=== PATIENT | male | born 1955 | race Caucasian/White ===

== ENCOUNTER 2018-10-22 11:28 | Inpatient (IN) | payer SELFPAY ==
[~2018-10-22] VITALS: Ht 182.9 cm; Wt 113.6 kg
--- NOTE | ~2018-10-22 | DS ---
[facility] [address], [place] [address] Draft ADMISSION DATE: 10/22/2018 DISCHARGE DATE: 10/26/2018 REASON FOR ADMISSION: This 62-year-old white man is accompanied by his . 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 They call home the [facility]. The patient has had several weeks of urinary frequency, urinating at least 20 times a day on occasion and having some diarrhea and other issues related to bowel dysfunction. He presented to the emergency room with severe left lower abdominal and left suprapubic pain and was thoroughly evaluated by Dr. Lewis who noted tenderness in the left lower quadrant and suprapubic area. His lab studies were unremarkable with a normal white count and hematocrit. A CT scan was performed, showing marked inflammatory process related to the sigmoid and rectosigmoid with circumferential thickening, suggestive and worrisome for neoplasm, but with a high probability of acute diverticulitis without associated abscess as well. There is a marked inflammatory interface between the sigmoid colon and the bladder, but no sign of air within the bladder itself. He is admitted for further evaluation and care. PERTINENT PHYSICAL EXAMINATION: GENERAL: A large, tall, and obese white man. He did not look systemically toxic. NECK: Trachea is midline. CHEST: Clear. HEART: Regular without murmur. ABDOMEN: Obese, but generally soft. There is marked tenderness in the suprapubic area and the left lower abdomen. There is no sign of ascites. LABORATORY DATA: Lab studies showed a white count of 9.3, hematocrit 44.5, platelets 221,000. Electrolytes were normal. Creatinine elevated at 1.14. Liver enzymes normal. Urinalysis normal. HOSPITAL COURSE: The patient was admitted and given broad-spectrum antibiotic, meropenem. Concern was maintained this may well represent acute diverticulitis with impending colovesical fistula given the irritative symptoms of the bladder, but he affirmed no pneumaturia and his urinalysis was normal. He was given antibiotics to allow for improvement of his symptoms, which was effective. Mindful of the concern for a possible neoplasm associated with this process, he did undergo limited colonoscopy after a prep of tap water enemas only on October 25, 2018. Found at that time were no diverticula specifically, but the inflammatory area of concern showed edema and did not show signs PATIENT NAME: SANJUANITA MACHUCA DISCHARGE SUMMARY DATE OF : 57 REPORT #: [id number] PHYSICIAN: SPENCER CASTLE MD PCP: NO PRIMARY CARE PHYSICIAN REPORT IS CONFIDENTIAL AND NOT TO BE RELEASED WITHOUT AUTHORIZATION [facility] [address], [place] [address] Draft typical of colon cancer proper. Multiple biopsies were obtained. I reviewed the CT scan in detail with the radiologist, Dr. Hutton, and he did affirm clearly that there were diverticula in the region including upstream from the area evaluated. Notably, the colonoscope could not pass the area entirely, although it was not entirely obstructed. There was edema and discomfort, which precluded persisting so as to avoid perforation or other complication. He was advanced to a low-fiber diet, which he tolerated well and transitioned to oral antibiotics, Cipro and Flagyl, which he also tolerated. He is discharged to home with the proviso that he will see me back when he passes through town again and will coordinate with my office when that might be. He understands that the biopsies for the colonoscopy still are uncertain as regard to cancer, not although less likely so. He understands that there are implications for the diagnosis. If cancer is found, sigmoid resection would be necessary. If this is benign, treatment for inflammatory changes including the diverticulitis without need for surgery likely would be appropriate. At discharge, the patient will maintain a low-fiber diet with the dietary instruction to follow. He will not drive if taking an opioid pain medication, and if problems, will call me or direct himself to a nearest emergency room wherever he may find himself. It is recalled that he is discharged under the care and supervision of his who is a co-straddle bug driver with his [place]. DISCHARGE MEDICATIONS: 1. Cipro 500 mg one tab p.o. b.i.d., #14. 2. Flagyl 250 mg p.o. t.i.d., #21. 3. Nicotine lozenge 4 mg as needed for craving of cigarettes, #30, refill two. 4. Percocet 7.5/325 one p.o. q.6 p.r.n. pain, #20. 5. Tylenol Extra Strength 1000 mg p.o. q.6 hours as needed for lesser pain, #60, refill two. 6. He will continue with his usual medication including omeprazole 20 mg p.o. daily, aspirin 81 mg p.o. daily, and loratadine (Claritin) 10 mg p.o. as needed. DISCHARGE DIAGNOSES: 1. Severe acute diverticulitis with secondary effects on bladder and circumferential thickening of colon, sigmoid. 2. Obesity. 3. Reflux symptoms. 4. Smoking addiction. 5. History of abdominal wall hernia repair. 6. Status post limited colonoscopy with biopsy of circumferential edematous area, most consistent with inflammation, not neoplasm. PATIENT NAME: SANJUANITA MACHUCA DISCHARGE SUMMARY DATE OF : 57 REPORT #: [id number] PHYSICIAN: SPENCER CASTLE MD PCP: NO PRIMARY CARE PHYSICIAN REPORT IS CONFIDENTIAL AND NOT TO BE RELEASED WITHOUT AUTHORIZATION [facility] [address] [place] [id number] Draft FOLLOWUP PLANS: As noted, he will call to arrange a time to see us in my office as he passes through town again, which he does frequently. He understands that the pathology report must be conveyed to him directly and not to assume that since he has not heard anything that the biopsy is negative. He will be more difficult to contact on the road and we will be in our stationary office and he will call in a week if he does not hear from us sooner. Spencer Castle MD JM/MODL /[id number] cc: Lmaonte Lewis MD Copies: LAMONTE LEWIS MD ~ PATIENT NAME: SANJUANITA MACHUCA DISCHARGE SUMMARY DATE OF : 57 REPORT #: [id number] PHYSICIAN: SPENCER CASTLE MD PCP: NO PRIMARY CARE PHYSICIAN REPORT IS CONFIDENTIAL AND NOT TO BE RELEASED WITHOUT AUTHORIZATION
[2018-10-22] MEDS ORDERED: OMEPRAZOLE20 MG PO (11:48)
--- NOTE | 2018-10-22 19:51 | NUR ---
PT ADMITTED FROM THE ED FOR DR CASTLE. ON RA, A/O, [facility], THEN AMBULATED TO , PASSED LARGE AMOUNT GAS, NO BM, NO URINE. STATES HE WHEN HE GOT TO ED HE DIARRHEA, HAD MULT LOOSE STOOLS 10/24/18. 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 AT BEDSIDE. PT IS A EVERY DAY SMOKER.
--- NOTE | 2018-10-22 20:32 | NUR ---
PATIENT ADMISSION COMPLETED BY MARIANO LORENZO RN. PATIENT ASSESMENT COMLETED. IV INIFUSING PER ORDER. PATIENTS BOLUS INFUSING PER ORDER. PATIENTS EVENING MEDICATIONS GIVEN PER ORDER. PATIENT DENIES ANY PAIN OR NAUSEA. PATIENT REFUSED HEPARIN STATING "MY BROTHER IS ALLERGIC." PATIENT EDUCATED ON HEPARIN AND THE BENEFITS. PATIENT CONTINUES TO REFUSE. PATIENT DENIES ANY NEEDS. CALL LIGHT IN REACH. BROTH PROVIDED BY ISAAC DAY.
--- NOTE | 2018-10-22 22:46 | NUR ---
PATIENTS ABX INFUSING PER ORDER. PATIENT IS UP AMBULATING IN THE HALLWAY. PATIENT DENIES ANY PAIN OR NAUSEA. PATIENT HAD NO NAUSEA WITH BROTH. NO NEEDS NOTED.
--- NOTE | 2018-10-22 23:16 | NUR ---
PATIENT IS BACK IN BED RESTING AFTER AMBULATING MULTIPLE LAPS IN THE HALLWAY. PATIENTS IV INFUSING PER ORDER. PATIENT DENIES ANY PAIN OR NAUSEA. NO NEEDS NOTED. CALL LIGHT IN REACH.
--- NOTE | 2018-10-23 00:50 | NUR ---
PATIENT IS RESTING IN BED WATCHING TV. PATIENT DENIES ANY PAIN OR NAUSEA. NO NEEDS NOTED. CALL LIGHT IN REACH.
--- NOTE | 2018-10-23 02:11 | NUR ---
PATIENT IS RESTING IN BED WATCHING TV. PATIENT DENIES ANY PAIN OR NAUSEA. PATIENTS VITALS TAKEN AND RECORDED. INTAKE AND OUPUT TAKEN AND RECORDED. PATIENT PROVIDED WITH JUICE, BROTH AND FRESH ICE WATER PER REQUEST. PATIENT DENIES ANY FURTHER NEEDS. CALL LIGHT IN REACH.
--- NOTE | 2018-10-23 05:47 | NUR ---
PATIENT RESTED ON AND OFF SINCE ARRIVING TO THE FLOOR. PATIENT IS ON A CLEAR LIQUID DIET, TOLERATING IT WELL, AND NO COMPLAINTS OF NAUSEA. PATIENT IS ON RA. PATIENT HAS IV INFUSING PER ORDER. PATIENT HAS DENIED PAIN. PATIENT HAS SCDS ON WHILE IN BED. PATIENT IS INDEPENDENT AND AMBULATED MULTIPLE LAPS IN THE HALLWAY. PATIENT IS AAOX3.
--- NOTE | 2018-10-23 06:02 | NUR ---
PATIENTS VITALS TAKEN AND RECORDED. PATIENTS INTAKE AND OUPUT RECORDED. PATIENT IS RESTING IN BED WATCHING TV. PATIENT DENIES ANY PAIN OR NAUSEA. PATIENT PROVIDED WITH BROTH AND JUICE PER REQUEST. PATIENT DENIES ANY FURTHER NEEDS. CALL LIGHT IN REACH.
--- NOTE | 2018-10-23 06:40 | NUR ---
PATIENTS MORNING MEDICATIONS GIVEN PER ORDER. PATIENT IS RESTING IN BED WATCHING TV. PATIENT IS SIPPING BROTH AND DENIES ANY NAUSEA. PATIENT DENIES ANY PAIN. NO NEEDS NOTED. CALL LIGHT IN REACH.
--- NOTE | 2018-10-23 08:43 | NUR ---
PATIENT SITTING UP IN BED. SETS UP BATHROOM FOR SHOWER. CALL LIGHT WITHIN REACH. NO OTHER NEEDS AT THIS TIME
--- NOTE | 2018-10-23 09:33 | NUR ---
PATIENT SITTING UP IN BED. VITAL SIGNS AND I&O DONE. CALL LIGHT WITHIN REACH. NO OTHER NEEDS AT THIS TIME
--- NOTE | 2018-10-23 13:21 | NUR ---
PATIENT SITTING UP IN BED. IN ROOM. VITAL SIGNS AND I&O DONE. CALL LIGHT WITHIN REACH. NO OTHER NEEDS AT THIS TIME
--- NOTE | 2018-10-23 14:39 | NUR ---
PATIENT SITTING UP IN BED WATCHING TV. NICOTINE LOZANGE PROVIDED. ABX RUNNING AT 33 MLS/HR. PATIENT STATES PAIN OF 4/10, PRN PAIN MEDICATION PROVIDED. BOWEL TONES ACTIVE IN ALL FOUR QUADRANTS. PATIENT DENIES ANY FURTHER NEEDS AT THIS TIME, CALL LIGHT WITHIN REACH.
[2018-10-23] MEDS ORDERED: ASPIR 8181 MG PO (15:23)
[2018-10-23] MEDS ORDERED: CLARITIN10 MG PO (15:23)
--- NOTE | 2018-10-23 15:24 | NUR ---
MED REC COMPLETE
--- NOTE | 2018-10-23 15:47 | NUR ---
PATIENT RESTING IN BED. IN ROOM. IV WRAPPED. PATIENT GOES TO THE BATHROOM TO TAKE A SHOWER. LINENS CHANGED. CALL LIGHT WITHIN REACH. NO OTHER NEEDS AT THIS TIME
--- NOTE | 2018-10-23 16:11 | NUR ---
PATIENT AMBULATING IN THE HALLWAY WITH HIS
--- NOTE | 2018-10-23 16:19 | NUR ---
PATIENT UP TO AMBULATE MULTIPLE LAPS AROUND HALLWAY. PATIENT DENIES PAIN AT THIS TIME.
--- NOTE | 2018-10-23 17:22 | NUR ---
PATIENT SITTING UP IN BED. IN ROOM. VITAL SIGNS AND I&O DONE. CALL LIGHT WITHIN REACH. NO OTHER NEEDS AT THIS TIME
--- NOTE | 2018-10-23 17:30 | NUR ---
PATIENT HAS HAD A GOOD DAY. PLAN OF CARE WAS FOR BOWEL REST AND ABX. PATIENT ON CLEAR LIQUIDS, AND RECEIVING MEROPENAM. PATIENT STEADY ON FEET, AMBULATES WELL, WALKED HALLWAYS MULTIPLE TIMES. NICOTINE LOZANGE ORDERED. PATIENTS ABDOMEN TENDER, REPORTING PAIN OF 3-4, PRN MORPHINE ADMINISTERED. PATIENT DENIES NAUSEA.
--- NOTE | 2018-10-23 19:55 | NUR ---
RECEIVED REPORT FROM DAY SHIFT RN. PATIENT IS RESTING IN BED WATCHING TV. PATIENT DENIES ANY PAIN OR NAUSEA.
--- NOTE | 2018-10-23 21:55 | NUR ---
PATIENT ASSESMENT COMPLETED. PATIENT IS RESTING IN BED WATCHING TV. PATIENT DENIES ANY NAUSEA. PATIENT REPORTS 4/10 PAIN IN HIS LOWER ABD. PATIENT GIVEN PRN PAIN MEDICATION PER ORDER. PATIENTS EVENING MEDCIATIONS GIVEN PER ORDER. IV INFUSING PER ORDER. PATIENT DENIES ANY NEEDS. CALL LIGHT IN REACH.
--- NOTE | 2018-10-23 23:08 | NUR ---
PATIENT IS RESTING IN BED WATCHING TV. PATIENT DENIES ANY NEEDS CALL LIGHT IN REACH.
--- NOTE | 2018-10-24 00:11 | NUR ---
PATIENT MOVED TO ROOM 117. PATIENT OREINTED TO NEW ROOM. PATIENT UP AMBULATING IN HALLWAY AT THIS TIME. NO NEEDS NOTED.
--- NOTE | 2018-10-24 00:30 | NUR ---
ACQUISITIONS LOGISTICS ANALYST NOTIFIED RN THAT IV SITE LEAKING. IV PULLED OUT ACCIDENTLY BY PT, LEAKING, NOT PATENT. D/C'D WNL. PRIMARY RN NOTIFIED.
--- NOTE | 2018-10-24 00:55 | NUR ---
AFTER AMBULATING MULTIPLE TIMES IN THE HALLWAY. PATIENT IS NOW BACK IN ROOM. PATIENTS IV IS NO LONGER PATENT. IV REMOVE AND NEW IV STARTED MY LAMONT RN. PATIENT IS RESTING IN BED WATCHING TV. PATIENT DENIES ANY PAIN OR NAUSEA. CALL LIGHT IN REACH. NO NEEDS NOTED.
--- NOTE | 2018-10-24 01:37 | NUR ---
PATIENT CALLED AND REQUESTED PAIN MEDICATION. PATIENT REPORTS 4/10 PAIN IN HIS LOWER ABD. PATIENT GIVEN PRN PAIN MEDICATION PER ORDER. PATIENT IS RESTING IN BED WATHING TV. PATIENT DENIES ANY FURTHER NEEDS. CALL LIGHT IN REACH.
--- NOTE | 2018-10-24 02:42 | NUR ---
PATIENT IS RESTING IN BED WATCHING TV. PATIENTS PAIN HAS DECREASED WITH MEDICATION. PATIENT DENIES ANY NEEDS AT THIS TIME. CALL LIGHT IN REACH.
--- NOTE | 2018-10-24 04:54 | NUR ---
PATIENT RESTED ON AND OFF THROUGHOUT THE SHIFT. PATIENT IS ON A CLEAR LIQUID DIET, TOLERATING IT WELL, AND NO COMPLAINTS OF NAUSEA. PATIENT IS ON RA. PATIENT HAS IV INFUSING PER ORDER. PATIENT RECEIVED PRN PAIN MEDICATIONS. PATIENT HAS SCDS ON WHILE IN BED. PATIENT IS INDEPENDENT IN THE HALLWAY AND AMBULATED MULTIPLE LAPS IN THE HALLWAY. AAOX3
--- NOTE | 2018-10-24 06:31 | NUR ---
PATIENTS VITALS TAKEN AND RECORDED. PATIENT RATES PAIN AT A 4/10. PATIENT GIVEN PRN PAIN MEDICATION PER ORDER. PATIENTS INTAKE AND OUPUT RECORDED. PATIENTS MORNING MEDICATIONS GIVEN PER ORDER. PATIENT DENIES ANY NAUSEA. PATIENT IS UP AMBULATING IN THE HALLWAY. PATIENT DENIES ANY FURTHER NEEDS.
--- NOTE | 2018-10-24 07:55 | NUR ---
0710: BEDSIDE REPORT RECIEVED FROM KEIKO PAINTING. PT STATES HE IS FEELING OKAY AT THIS TIME AND HAS JUST COMPLETED A WALK IN THE HALLS. HE STATES THAT HE HAD A SOFT BM THIS AM. IV OF D5LR IS INFUSING AT 85 ML/HR.
--- NOTE | 2018-10-24 09:25 | NUR ---
IN TO COMPLETE INITIAL CASE MANAGEMENT ASSESSMENT. PT IS FROM [place] AND REPORTS HE DOES NOT HAVE A PCP. PT IS AWARE OF THE CARE PLAN GOING FORWARD AND STATES THAT HE WILL BE ABLE TO STAY IN THE AREA FOR FOLLOW UP APTS WITH DR CASTLE.
--- NOTE | 2018-10-24 09:36 | NUR ---
PT RESTING IN HIS BED AND IS EATING HIS CLEAR LIQUID DIET. HE STATES HIS ABD PAIN IS NOW A 4/10 WHICH IS ACCEPTABLE TO HIM AT THIS TIME. HE STATES HE WALKED 25 LAPS THIS MORNING. PT DENIES ANY PROBLEMS OTHER THAN HIS ABD PAIN. HE STATES HE HAD A SOFT BM THIS AM AND HIS BOWEL ARE ACTIVE. HE REFUSED HIS HEPARIN HE STATES HIS BROTHER HAD A REACTION TO IT IN THE PAST. PT IS WEARING HIS SCD'S.
--- NOTE | 2018-10-24 10:26 | NUR ---
Pt resting in his bed and he states his abd pain is a 4/10 which he reqeusted pain medication for as he is planning on walking shortly. He denies any additional problems at this time.
--- NOTE | 2018-10-24 11:24 | NUR ---
Pt walked about 20 laps and he states he stopped because he was having some nausea. He states it has almost totaly passed since he stopped walking. He now states his abd pain is 3/10 which is acceptable and an improvement.
--- NOTE | 2018-10-24 13:08 | NUR ---
PT STATES HIS ABD IS A 3 AND UNDER CONTROL AND HE DENIES ANY NAUSEA. HE HAS HIS SCD'S ON AND RUNNING AND HE IS VISITING WITH HIS .
--- NOTE | 2018-10-24 15:30 | NUR ---
PT STATES HIS PAIN IS A 4/10 AND WOULD LIKE IT TREATED PRIOR TO WALKING. SEE EMAR. PT DENIES ANY NAUSEA OR NEW PROBLEMS.
--- NOTE | 2018-10-24 17:30 | NUR ---
PT AMBULATED ON THE HALLS 3 TIMES ON DAY SHIFT FOR ABOUT 55 LAPS. HE STATES HIS ABD PAIN IS IMPROVED OVER WHAT IT WAS YESTERDAY. HE CONTINUES ON CLEAR LIQUID AND IS TOLERATING THE DIET WELL. PT STATES HE IS PLANNING TO HAVE A COLONOSCOPY TOMORROW. VITAL SIGNS STABLE AND BOWEL SOUNDS ARE ACTIVE. PT HAD ONE SOFT BOWEL MOVEMENT THIS AM.
--- NOTE | 2018-10-24 17:34 | NUR ---
PT STATES HE TOOK A NAP AND HIS PAIN LEVEL IS NOW A 3/10 WHICH IS ACCEPTABLE AND AN IMPROVEMENT OVER YESTERDAY.
--- NOTE | 2018-10-24 19:15 | NUR ---
SHIFT REPORT RECEIVED FROM DAYSHIFT GARIMA FLORINA AT BEDSIDE. PT AWAKE AND RESTING, DENIES NEEDS. IV FLUIDS INFUSING, IV SITE WNL. IN ROOM, BOARD UPDATED. NO FURTHER NEEDS,CALL LIGHT IN REACH.
--- NOTE | 2018-10-24 20:30 | NUR ---
ASSESSMENT COMPLETE, SCHEDULED MEDICATIONS GIVEN (SEE EMAR). SCHEDULED HEPARIN HELD PER PT REQUEST, DISCUSSED PROS OF MEDICATION. PT CONTINUED TO KINDLY REFUSE. A/OX4, PT AMBULATING INDEPENDENTLY IN ROOM. INSTRUCTED TO USE CALL LIGHT IF PAIN MEDICATIONS ARE GIVEN FOR SAFETY. PT VERBALIZED UNDERSTANDING. IV FLUIDS INFUSING PER MD ORDERS, IV SITE WNL. NO FURTHER NEEDS, CALL LIGHT IN REACH. PT REPORTS RECENT BM.
--- NOTE | 2018-10-24 21:06 | NUR ---
CHARGE NURSE ROUNDING. BROUGHT BROTH AND FRANCA, ASSISTED WITH SCDS SO pt COULD AMBULATE TO TOILET. CALL LIGHT WITHIN REACH. NO FURTHER REQUESTS NO COMPLAINTS. WHITEBOARD UPDATED. ALL QUESTIONS ANSWERED.
--- NOTE | 2018-10-24 22:31 | NUR ---
VITALS AND I&OS DONE AND CHARTED. BEDSIDE TABLE AND CALL LIGHT IN REACH. PT NEEDS NOTHING AT THIS TIME.
--- NOTE | 2018-10-24 22:40 | NUR ---
PT REPORTS 4/10 PAIN, 4MG PRN MORPHINE GIVEN ALONG WITH NICOTINE LOZENGE GIVEN PER PT REQUEST. IV ABX INFUSING (SEE EMAR). PER CLINICAL PHARMACOLOGY, MEDICATION INCOMPATABLE WITH D5LR. SPOKE TO EMMA FROM [facility], PER EMMA MEDICATION AND FLUIDS INCOMPATABLE AND SUGGEST EITHER STOPPING MAIN FLUIDS OR PLACE SECOND IV SITE. DISCUSED WITH LODGING MANAGERGARIMA JONES. ORAL INTAKE AND URINE OUTPUT QS, MAIN FLUIDS PLACED ON STANDBY AT THIS TIME. WILL CONTINUE TO MONITOR. LUNG SOUNDS CLEAR, PT ON RA, NO DISTRESS NOTED.
--- NOTE | 2018-10-25 00:29 | NUR ---
PT RESTING IN BED, EYES CLOSED. RR WNL, NO DISTRESS NOTED. CALL LIGHT IN REACH.
--- NOTE | 2018-10-25 06:30 | NUR ---
ASSESSMENT COMPLETE, NO NEW CHANGES OR CONCERNS. VSS, PT ON RA. PT REPORTS 4/10 PAIN, PRN MORPHINE ADMINISTERED. SCHEDULED IV ABX INFUSING, IV SITE WNL. NO FURTHER NEEDS, CALL LIGHT IN REACH.
--- NOTE | 2018-10-25 07:24 | NUR ---
VSS, PT USES CALL LIGHT APPROPERIATELY. SBA WITH AMBULATION. 4MG MORPHINE GIVEN X2 FOR PAIN. IV FLUIDS AND SCHEDULED IV ABX, IV SITE WNL. PT VOIDING QS, 3-4 LIQUID BM'S THIS SHIFT. BOWEL TONES ACTIVE. PLAN FOR LIMITED COLONOSCOPY, PT MADE NPO AT 0400. PER ROCK LOADER MOTOR SCOOTER MECHANIC, PT WILL GO IN FOR COLONOSCOPY AROUND NOON. SCD'S IN PLACE.
--- NOTE | 2018-10-25 07:39 | NUR ---
0705: PT RESTING IN HIS BED STATING HIS ABD PAIN IS CONTROLED. HE STATES THAT HE HAS HAD 4 LIQUID BM'S LAST NIGHT AND HE REFUSED SCD'S AT THEY WILL SLOW HIM GETTING TO THE BR. CALL CAVAZOS WITHIN REACH AND THE PT DENIES ANY ADDITIONAL PROBLEMS. HE HAS BEEN NPO SINCE MIDNIGHT PER THE LEADERSHIP DEVELOPMENT MANAGER.
--- NOTE | 2018-10-25 08:30 | NUR ---
PATIENT SITTING UP IN CHAIR. RN IN ROOM. LINENS CHANGED. CALL LIGHT WITHIN REACH. NO OTHER NEEDS AT THIS TIME
--- NOTE | 2018-10-25 09:02 | NUR ---
PATIENT SITTING UP IN CHAIR. VITAL SIGNS AND I&O DONE. CALL LIGHT WITHIN REACH. NO OTHER NEEDS AT THIS TIME
--- NOTE | 2018-10-25 10:06 | NUR ---
PT STATES HIS ABD PAIN IS A 4/10 AND HE REQEUSTED PAIN MEDICATIONS, SEE EMAR. PT DENIES ANY OTHER PROBLEMS.
--- NOTE | 2018-10-25 10:44 | NUR ---
Pt continues to rate his pain at a 4/10 and he was remedicated, see emar.
--- NOTE | 2018-10-25 12:22 | NUR ---
PT GIVEN TWO TAP WATER ENEMAS VERY GENTLE AND EASY. THE PT TOLERATED THE ENEMAS WELL. THE FIRST ENEMA PRODUCED A LARGE AMOUNT OF GREEN/BROWN LIQUID STOOL. THE SECOND ENEMA PRODUCED LIGHTLY COLORED LIQUID. PT NOW LYING BACK IN HIS BED WITH NO COMPLAINS REGARDING THE ENEMAS AND HE DENIES ANY CRAMPING AND HIS PAIN IN HIS ABD IS A 3/10 WHICH IS UNCHANGED FROM PRIOR TO GIVING THE ENEMAS.
--- NOTE | 2018-10-25 12:51 | NUR ---
OR STAFF ARRIVED TO THE PT'S ROOM AND IS TAKING HIM TO THE ENDO ROOM AT THIS TIME.
--- NOTE | 2018-10-25 13:39 | NUR ---
PATIENT IN SURGERY. I&O DONE.
--- NOTE | 2018-10-25 13:50 | NUR ---
10/25/18 1350 Edie Delaney 1346 PATIENT ARRIVES TO PACU AWAKE, BUT DROWSY, FALLS ASLEEP WHEN NOT STIMULATED. RESP EVEN AND UNALBORED. SNORING WHEN SLEEPING. ROOM AIR SATS >90%.
--- NOTE | 2018-10-25 14:15 | NUR ---
PATIENT RETURNED FROM SCOPE. PATIENT IS 95% ON ROOM AIR, VERY SLEEPY, DENIES PAIN. SCOPE DETAIL IN CHART. IVF RESUMED. SCHEDULED 1400 IV ABX INFUSING.
--- NOTE | 2018-10-25 14:41 | NUR ---
PT AWAKE AND STATES HIS ABD DISCOMFORT IS A 4/10 WHICH IS TOLERABLE AND FEELS IT DID PRIOR TO HIS COLONOSCOPY. CALL CAVAZOS WITHIN REACH AND PT INSTUCTED TO CALL PRIOR TO GETTING OUT OF BED WHICH HE STATES UNDERSTANDING.
--- NOTE | 2018-10-25 15:15 | NUR ---
PT STATES HIS PAIN IN HIS ABD IS NOW A 3/10 AND HAS IMPOROVED SINCE I LAST ASKED HIM. PT APPEARS COMFORTABLE AND IS WATCHING TV.
--- NOTE | 2018-10-25 17:20 | NUR ---
Pt was sleeping when I arrived to the room but awoke when I was in the room. He states he is doing well at this time. Pt's remains in the room.
--- NOTE | 2018-10-25 18:00 | NUR ---
Pt appears comfortable and is visiting with his . Pt just ordered dinner.
--- NOTE | 2018-10-25 18:11 | NUR ---
PATIENT RESTING IN BED. IN ROOM. VITAL SIGNS DONE. I&O DONE BY RN. CALL LIGHT WITHIN REACH. NO OTHER NEEDS AT THIS TIME
--- NOTE | 2018-10-25 18:43 | NUR ---
Pt sitting up in his bed eating dinner with no complaints at this time.
--- NOTE | 2018-10-25 19:06 | HP ---
[facility] [address], [place] [address] Signed ADMISSION DATE: 10/22/2018 REASON FOR ADMISSION: Severe acute diverticulitis, possible neoplasm, secondary bladder irritation. HISTORY OF PRESENT ILLNESS: This 62-year-old white man is accompanied by his . 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 They call home, a town in [place]. The patient has had several weeks of urinary frequency, urinating at least 20 times in some occasions and also having some diarrhea and other issues related to bowel function. He presented to the emergency room with rather severe left lower and left suprapubic pain and was thoroughly evaluated by Dr. Lewis who noted tenderness in the left lower quadrant and suprapubic area. His lab studies were relatively unremarkable with a normal white count and hematocrit. His evaluation in the emergency room included a CT scan, which showed marked inflammatory process related to the sigmoid colon and rectosigmoid with a circumferential thickening suggestive and worrisome for a neoplasm, but with a high probability of acute diverticulitis without associated abscess as well. There is marked inflammatory interface between the sigmoid colon and the bladder, but no sign of air within the bladder itself. The patient is admitted for further evaluation and care. PAST MEDICAL HISTORY: Does include cholecystectomy in [place] ([place], [place]) as well as what sounds like incisional hernia with implantation of mesh as well as lipoma excision. He is known to have gastroesophageal reflux disease and distant history of myocardial infarction. He does not use alcohol. Does not use drugs and smokes on a daily basis. He has allergy to penicillin. His only medication currently is omeprazole. REVIEW OF SYSTEMS: He denies any shortness of breath or chest pain. He has had no dysphagia or dysuria, denies any actual blood per rectum. He has had diarrhea from time to time. FAMILY HISTORY: He has a sister who of pancreatic cancer. He has no known family history of colon cancer. SOCIAL HISTORY: He is . 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 [address], [place] [address] Signed described. Makes his home in [place]. PHYSICAL EXAMINATION: GENERAL: An obese white man who does not look particularly systemically toxic. NECK: Trachea is midline. HEENT: Mucous membranes are slightly dry. CHEST: Clear heart is regular without murmur. ABDOMEN: Obese, but generally soft. There is marked tenderness in the suprapubic area in the left lower quadrant. It shows no sign of ascites. EXTREMITIES: Show no clubbing, cyanosis, or edema. LABORATORY STUDIES: Show white count 9.3, hematocrit 44.5, platelets 221,000. Electrolytes are normal. Creatinine slightly elevated at 1.14. Liver enzymes are normal. Urinalysis is essentially negative. CT scan affirms a circumferential thickening of the sigmoid proximally and adjacent inflammatory change. There is surgical absence of the gallbladder and history of abdominal wall hernia repair noted. There are punctate calcifications of spleen considered sequela of granulomatous disease. ASSESSMENT: Clinical findings highly suggestive of rather severe acute diverticulitis. His urinary frequency and urinary symptoms generally speaking are likely related to the inflammatory process itself. There is no clinical, historical, or radiographic evidence of actual colovesical fistula, though one might be concerned it is an impending process given the findings at hand. The biggest concern of course is whether this might represent a neoplasm of the colon. For now, patient needs to be admitted given intravenous antibiotics, bowel rest, and at the earliest opportunity imaging to better characterize the sigmoidal process specifically whether or not a neoplasm is noted. Would avoid urgent endoscopic evaluation given the acute inflammatory process as it can be made worse quite clearly by colonoscopy in a time frame too early. Discussed all this with patient and his . They understand. He will be admitted to the hospital as described. Nicotine patch will be used for smoking cessation therapy. Spencer Castle MD Electronically Signed By: SPENCER CASTLE MD 10/25/18 190 PATIENT NAME: SANJUANITA MACHUCA HISTORY AND PHYSICAL DATE OF : 57 REPORT #: [id number] PHYSICIAN: SPENCER CASTLE MD PCP: NO PRIMARY CARE PHYSICIAN REPORT IS CONFIDENTIAL AND NOT TO BE RELEASED WITHOUT AUTHORIZATION [facility] [address], [place] [address] Signed /CELIL /[id number] cc: Lamonte Lewis MD Copies: LAMONTE LEWIS MD ~ Electronically Signed By: SPENCER CASTLE MD 10/25/18 1906 PATIENT NAME: SANJUANITA MACHUCA HISTORY AND PHYSICAL DATE OF : 57 REPORT #: [id number] PHYSICIAN: SPENCER CASTLE MD PCP: NO PRIMARY CARE PHYSICIAN REPORT IS CONFIDENTIAL AND NOT TO BE RELEASED WITHOUT AUTHORIZATION
--- NOTE | 2018-10-25 19:13 | NUR ---
RECEIVED REPORT FROM GARIMA HEATON. pt LAYING IN BED. REPORTED 3/10 PAIN. ATE DINNER DENIED NAUSEA AT THIS TIME. REQUESTED PAIN MEDS ABOUT 1999. WILL RETURN. TRAY CLEARED. URINAL EMPTIED. WHITEBOARD UPDATED. NO FURTHER REQUESTS CALL LIGHT WITHIN REACH.
--- NOTE | 2018-10-25 20:13 | NUR ---
VITALS AND I&OS DONE AND CHARTED. JELLO GIVEN PER PT REQUEST. BEDSIDE TABLE AND CALL LIGHT IN REACH.
--- NOTE | 2018-10-25 20:30 | NUR ---
ASSESSMENT DONE. PRN PAIN MED GIVEN WITH SCHEDULED MEDS (SEE MAR). RATED PAIN 4/10. UP TO TOILET AND THEN SITTING IN CHAIR. AMBULATED WELL. BOWEL TONES HYPERACTIVE. REPORTED DIGESTIVE UPSET WITH FOOD. THERAPEUTIC COMMUNICATION. 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 CALL LIGHT AND POSSESSIONS WITHIN REACH. NO FURTHER REQUESTS AT THIS TIME.
--- NOTE | 2018-10-25 21:27 | NUR ---
ROUNDED ON pt. PAIN IS "BETTER" REQUESTED TO WALK AT THIS TIME. INFORMED CNAS. CALL LIGHT WITHIN REACH.
--- NOTE | 2018-10-25 23:46 | NUR ---
ROUNDED ON pt. RESTING WITH EYES CLOSED, RESPIRATIONS REGULAR AND UNLABORED. CALL LIGHT WITHIN REACH.
--- NOTE | 2018-10-26 01:45 | NUR ---
ROUNDED ON pt. RESTING IN BED. RESPIRATIONS REGULAR AND UNLABORED. CALL LIGHT WITHIN REACH.
--- NOTE | 2018-10-26 03:57 | NUR ---
ROUNDED ON pt. RESTING WITH EYES CLOSED, RESPIRATIONS REGULAR AND UNLABORED. CALL LIGHT WITHIN REACH.
--- NOTE | 2018-10-26 05:15 | NUR ---
VITALS AND I&OS DONE AND CHARTED. BEDSIDE TABLE AND CALL LIGHT IN REACH.
--- NOTE | 2018-10-26 05:23 | NUR ---
pt AMBULATED MULTIPLE LAPS AROUND UNIT. RATED PAIN 4/10, PRN PAIN MED GIVEN (SEE MAR). ASSESSMENT DONE. DISCUSSED DIET. CALL LIGHT WITHIN REACH.
--- NOTE | 2018-10-26 06:11 | NUR ---
pt RESTED MOST OF SHIFT. PAIN CONTROLLED WITH PRN MEDS X2. INDEPENDENT IN ROOM, AMBULATED MOSER MULTIPLE LAPS. IVF INFUSING. TOLERATING FULL LIQUID DIET. USES CALL LIGHT APPROPRIATELY.
--- NOTE | 2018-10-26 06:23 | NUR ---
ROUNDED ON pt. RATED PAIN 3/10. NO REQUESTS AT THIS TIME. CALL LIGHT WITHIN REACH.
--- NOTE | 2018-10-26 07:18 | NUR ---
PT RESTING IN SEMIFOWLERS POSITION IN BED WATCHING TV. CALL LIGHT AND H2O IN REACH. PT STATES HE IS COMFORTABLE AND DENIES NEEDS OR CONCERNS. BEDSIDE REPORT RECEIVED FORM GARIMA STEELE
--- NOTE | 2018-10-26 08:01 | NUR ---
PT RESTING SUPINE IN BED, ALERT AND ORIENTED. CALL LIGHT AND H2O IN REACH. PT ASSESSMENT COMPLETED AND AM MEDS ADMINISTERED. NO NEEDS OR CONCERNS VOICED. PT STATES HE IS COMFORTABLE.
--- NOTE | 2018-10-26 09:20 | NUR ---
PATIENT SITTING UP IN BED WATCHING TV. VITAL SIGNS AND I&O DONE. CALL LIGHT WITHIN REACH. NO OTHER NEEDS AT THIS TIME
--- NOTE | 2018-10-26 13:05 | NUR ---
PATIENT SITTING UP IN CHAIR. VITAL SIGNS AND I&O DONE. CALL LIGHT WITHIN REACH. NO OTHER NEEDS AT THIS TIME
--- NOTE | 2018-10-26 13:15 | NUR ---
PT SITTING UP IN CHAIR, REQUESTS TO BE SL'D TO SHOWER. ASSESSMENT COMPLETED AND PT SALINE LOCKED. BARB TIWARI IN TO ASSIST PT WITH SHOWER. PT DENIES FURTHER NEEDS OR CONCERNS. H2O AND CALL LIGHT IN REACH. PT REPORTS HAVING BM AND PASSING GAS RECENTLY.
--- NOTE | 2018-10-26 13:20 | NUR ---
PATIENT SITTING UP IN CHAIR. RN IN ROOM. PATIENT'S IV WRAPPED. PATIENT GOES TO THE BATHROOM TO TAKE A SHOWER. CALL LIGHT WITHIN REACH. NO OTHER NEEDS AT THIS TIME
[2018-10-26] MEDS ORDERED: CIPROFLOXACIN500 MG PO (13:35)
[2018-10-26] MEDS ORDERED: METRONIDAZOLE250 MG PO (13:36)
[2018-10-26] MEDS ORDERED: OXYCODON-ACETA1 EAC2 PO (13:36)
[2018-10-26] MEDS ORDERED: NICORETTE4 M2 BUCCAL (13:36)
[2018-10-26] MEDS ORDERED: TYLENOL EXTRA500 MG PO (13:37)
--- NOTE | 2018-10-26 13:46 | OR ---
[facility] [address], [place] [address] Signed DATE OF OPERATION: 10/22/2018 SURGEON: Spencer Castle MD PREOPERATIVE DIAGNOSIS: Severe inflammatory area of sigmoid, uncertain if a diverticular inflammatory process versus neoplastic obstruction. POSTOPERATIVE DIAGNOSIS: Edematous polypoid changes without clear evidence of diverticular changes, uncertain regarding neoplasm. PROCEDURE PERFORMED: Limited colonoscopy with biopsy. ANESTHESIA: Intravenous sedation, fentanyl 100 mcg, Versed 4 mg. INDICATIONS: This 62-year-old white man was admitted following evaluation in the emergency room by Dr. Lewis on 10/22/2018. 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 A CT scan was performed, which showed marked inflammatory change suggestive of diverticulitis but concentric narrowing of the sigmoid suspicious for possible neoplastic change. The patient has been given broad-spectrum antibiotic meropenem, bowel rest, IV fluids, and so forth and although is improving, has not completely resolved of his symptoms. He has had bowel movements and underwent limited prep including tap water enemas. He is to undergo colonoscopy to better characterize the lesion in question as a neoplastic versus an inflammatory process would have different treatment approaches obviously. He understands as does his the risk of bleeding, infection, and perforation and wished to proceed. FINDINGS: The area evaluated was well prepped. I saw no sign of diverticulosis in the rectosigmoid or sigmoid. At 35 cm, the lesion in question was noted, which did not allow symptom free passage of the scope, particularly. There is not ulcerated typical of most cancers, but the mucosa was edematous and heaped up. Multiple biopsies were obtained. There were no other findings of concern. DESCRIPTION OF PROCEDURE: Electronically Signed By: SPENCER CASTLE MD 10/26/18 1346 PATIENT NAME: SANJUANITA MACHUCA OPERATIVE REPORT DATE OF : 57 REPORT #: [id number] PHYSICIAN: SPENCER CASTLE MD PCP: NO PRIMARY CARE PHYSICIAN REPORT IS CONFIDENTIAL AND NOT TO BE RELEASED WITHOUT AUTHORIZATION [facility] [address], [place] [address] Signed The patient was brought to the endoscopy suite and placed in lateral decubitus position, given intravenous sedation to the point of slurred speech and nystagmus with full cardiopulmonary monitoring. Digital rectal examination was normal. An Olympus video colonoscope was passed in the rectum and manipulated through the rectosigmoid, showing no sign of diverticular changes particularly. The scope was advanced ultimately to the area in question, which was about 35 cm from the anal verge. This showed edematous changes of mucosa. No sign of ulceration. No clear and certain evidence of neoplasm, but multiple photographs were taken. Attempts to manipulate around or beyond this area were unsuccessful. Again, no ulceration. The area was firm and may represent a benign impending or chronic stricture. Multiple biopsies were taken of the polypoid changes mindful the possibility of malignancy itself. The scope was further withdrawn. There were no other findings of concern. Retroflexed view was normal as well. Scope was removed. The patient was taken to recovery room in good condition. CONCLUDING DIAGNOSIS: Uncertain lesion, most likely inflammatory, less likely neoplastic proper. On the other hand, inflammatory strictures whatever the cause, sometimes resection. PLAN: We will advance his diet to a full diet. Transition to oral antibiotics pending results of biopsies of the lesion. He may ultimately require sigmoid resection, it depends on the pathologic findings and his course. MD MARY JO Paulson/MODL /[id number] cc: Lamonte Lewis MD Copies: LAMONTE LEWIS MD Electronically Signed By: SPENCER CASTLE MD 10/26/18 1346 PATIENT NAME: SANJUANITA MACHUCA OPERATIVE REPORT DATE OF : 57 REPORT #: [id number] PHYSICIAN: SPENCER CASTLE MD PCP: NO PRIMARY CARE PHYSICIAN REPORT IS CONFIDENTIAL AND NOT TO BE RELEASED WITHOUT AUTHORIZATION [facility] [address] [place] [address] [place] [address] Signed ~ Electronically Signed By: SPENCER CASTLE MD 10/26/18 1346 PATIENT NAME: SANJUANITA MACHUCA OPERATIVE REPORT DATE OF : 57 REPORT #: [id number] PHYSICIAN: SPENCER CASTLE MD PCP: NO PRIMARY CARE PHYSICIAN REPORT IS CONFIDENTIAL AND NOT TO BE RELEASED WITHOUT AUTHORIZATION
--- NOTE | 2018-10-26 15:17 | NUR ---
PATIENT SITTING UP IN CHAIR. FINAL VITAL SIGNS WERE OBTAIEND PRIOR TO DISCHARGE FROM THE UNIT.
--- NOTE | 2018-10-28 15:24 | PATH ---
[facility] [address], [place] [address] Signed SPECIMEN(S): A COLON BIOPSY AT 35 CM SPECIMEN(S): B RECTUM BIOPSY SPECIMEN SOURCE: A. COLON BIOPSY AT 35 CM B. RECTUM BIOPSY CLINICAL HISTORY: Lesion at 35 cm. Severe acute diverticulitis. MICROSCOPIC DESCRIPTION: A. Sections reveal multiple biopsies of colonic mucosa. The superficial portions of several of the biopsies are denuded, estimated approximately the top one quarter. The glands are mostly simple and tubular with an infrequent bifid gland. The lamina propria is mildly expanded by a population of plasma cells, lymphocytes, infrequent eosinophils and an infrequent neutrophil. No excess intraepithelial lymphocytes are seen. No crypt abscesses, areas of fibrosis, pseudomembranes or granulomas are identified. There is no evidence of malignancy. B. Sections reveal a biopsy of colonic mucosa. The epithelial surface is intact and has retained mucus secreting ability. The basement membrane is not thickened. The lamina propria contains a few small areas of intramucosal hemorrhage, but is otherwise unexpanded. It is populated by small numbers of plasma cells, lymphocytes and infrequent eosinophils. No acute inflammatory cells, excess intraepithelial lymphocytes, crypt abscesses, areas of fibrosis, granulomas or pseudomembranes are seen. There is no evidence of malignancy or atypia. PIERCE:phil FINAL PATHOLOGIC DIAGNOSIS: A. Mucosa, colon at 35 cm, biopsy: - Mild chronic colitis with focal ulceration, disease activity minimal. - Negative for malignancy and atypia. B. Mucosa, rectum, biopsy: - No microscopic pathologic diagnosis. Case discussed with Dr. Beavers 10/28/18 2:50 PM. PIERCE:phil:C2NR GROSS DESCRIPTION: Two specimens are received in two containers, labeled "GH." PATIENT NAME: SANJUANITA MACHUCA PATHOLOGY DATE OF : 57 REPORT #: [id number] PHYSICIAN: [facility] PCP: NO PRIMARY CARE PHYSICIAN REPORT IS CONFIDENTIAL AND NOT TO BE RELEASED WITHOUT AUTHORIZATION [facility] [address] [place] [address] Signed A. The specimen, labeled "GH, colon biopsy at 35 cm," is received in formalin and consists of seven pink-johnson soft tissue fragments that measure 0.2-0.3 cm in greatest dimension. The specimen is entirely submitted in cassette (A1). B. The specimen, labeled "GH, rectum biopsy," is received in formalin and consists of two pink-johnson soft tissue fragments that measure 0.1-0.2 cm in greatest dimension. The specimen is entirely submitted in cassette (B1). JS (under the direct supervision of a pathologist) The Gross Description was prepared using a voice recognition system. The report was reviewed for accuracy; however, sound-alike word errors, addition and/or deletions may occur. If there is any question about this report, please contact Client Services. PERFORMING LABORATORY: The technical component was performed by [employer], [address] [place] [id number] (Lease Examiner: Leeanne Navarrete MD; CLIA# [id number]). Professional interpretation was performed by [employer] [facility], [address] [address] (Lease Examiner: Caio Fisher MD; CLIA# [id number]). Diagnostician: Caio Fisher MD Pathologist Electronically Signed 10/28/2018 Copies: ~ PATIENT NAME: SANJUANITA MACHUCA PATHOLOGY DATE OF : 57 REPORT #: [id number] PHYSICIAN: [facility] PCP: NO PRIMARY CARE PHYSICIAN REPORT IS CONFIDENTIAL AND NOT TO BE RELEASED WITHOUT AUTHORIZATION
== END 2018-10-26 15:25 | disposition home or self-care (01) | DRG 392 ==
LOC: ED 11:28 → MS 19:15
PROVIDERS: ADMIT Surgery
PROC: 0DBN8ZX Excision of Sigmoid Colon, Via Natural or Artificial Opening Endoscopic, Diagnostic (ICD-10-PCS; principal; 2018-10-25 11:45)
DX: K57.32 Diverticulitis of large intestine without perforation or abscess without bleeding (principal); K21.9 Gastro-esophageal reflux disease without esophagitis; I25.2 Old myocardial infarction; F17.200 Nicotine dependence, unspecified, uncomplicated; E66.9 Obesity, unspecified; N30.90 Cystitis, unspecified without hematuria; Z79.899 Other long term (current) drug therapy; Z88.0 Allergy status to penicillin; Z68.33 Body mass index [BMI] 33.0-33.9, adult
CPT/HCPCS: 36415; 51798; 74177; 80048; 80053; 81001; 83690; 85025; 99153; 99284-25; 99406; G0500; J1956; J2185; J2250; J2270; J3010; J7120; J7121; Q9967